=== PATIENT | female | born 1985 | race Caucasian/White ===

== ENCOUNTER 2022-11-15 09:02 | Outpatient (OUT) | payer OTHER, SELFPAY ==
--- NOTE | 2022-11-15 09:18 | VEIN_ITS ---
Patient: ERIC LAM Exam Date: 11/15/2022 : 1985 Gender:F Ordering : DR ALEKSANDR HOWARD M.D. Admission #: [id number] Family : Order #: [id number] CLICK HERE TO VIEW EXAM RADIOLOGY REPORT PROCEDURE: VC EXT VENOUS REFLUX SURINDER LMTD COMPARISON: None. INDICATIONS: I83.813 Painful varicose veins of bilat lower extremities TECHNIQUE: Duplex imaging of the lower extremity to assess the deep and superficial venous system for the presence of deep or superficial venous incompetence and to document the location and severity of disease. The study includes evaluation of the great saphenous vein (GSV), anterior accessory saphenous vein (AASV) and small saphenous vein (SSV). Patient scanned in reverse Trendelenburg and standing. FINDINGS: RIGHT LOWER EXTREMITY: Saphenofemoral Junction Reflux: Yes 9.0mm 1.1 sec GSV: Diam (mm) Reflux/ Time (sec) Proximal Thigh 5.6 No Mid Thigh 2.2 No Distal Thigh 2.0 No Prox Calf 1.9 No Mid Calf 2.3 No Saphenopopliteal Junction Reflux: 11.3mm Yes SSV: Proximal Calf 1.4 No Mid Calf 1.4 No AASV: Proximal Thigh 6.2 No Mid Thigh 2.9 No Distal Thigh Thrombi: No acute or chronic thrombus Compressibility: Normal Flow: Normal Preforator: No pharmacology associate visualized Tech Note: Incompetent SFJ/SPJ. Patent varicose vein on the distal medial thigh measures 1.9mm with 0s ofreflux. LEFT LOWER EXTREMITY: Saphenofemoral Junction Reflux: Yes 9.3 mm 1.5 sec GSV: Diam (mm) Reflux/Time (sec) Proximal Thigh 6.3 Yes 0.7 Mid Thigh 4.8 Yes 0.6 Distal Thigh 3.7 Yes 0.6 Prox Calf 2.6 No Mid Calf 1.4 No Saphenopopliteal Junction Relux: 8.0 mm Yes 0.9 SSV: Proximal Calf 1.4 No Mid Calf 2.4 No AASV: Not present Proximal Thigh Mid Thigh Distal Thigh Thrombi: No acute or chronic thrombus Compressibility: Normal Flow: Normal Vault Person: No pharmacology associate visualized Tech Note: Incompetent SFJ/SPJ. Patent varicose vein on the patients left groin measures 7.7 mm with 2.5s of reflux. Hypoechoic avascular area visualized in groin area measures 1.1 x 0.62 x 0.84 CM. CONCLUSION: 1. Mildly dilated mildly incompetent proximal left great saphenous vein and large varicosity arising from the great saphenous vein which corresponds to patient's area of pain. 2. Nonspecific 1.1 cm hypoechoic smoothly circumscribed and a vascular nodule within the subcutaneous fat of the left growing which also corresponds to patient's area of pain. Follow-up ultrasound evaluation of this area after vein treatment is recommended to document persistence versus resolution. 3. Unremarkable right lower extremity. Dictated by: Wilber Freedman M.D. on 11/15/2022 at 10:49 Approved by: Wilber Freedman M.D. on 11/15/2022 at 11:38
--- NOTE | 2022-11-15 09:19 | VEIN_ITS ---
Patient: ERIC RODRIGUEZ Exam Date: 11/15/2022 : 1985 Gender:F Ordering : DR ALEKSANDR HOWARD M.D. Admission #: [id number] Family : Order #: [id number] CLICK HERE TO VIEW EXAM RADIOLOGY REPORT PROCEDURE: VC FACILITY EST COMPREHENSIVE VEIN CENTER - OFFICE VISIT INITIAL COMPARISON: None. PROGRESS NOTES: [age] year old female who presents with a 5 year history of left leg pain and dilated bulging vein. The patient's left leg symptoms are worse than the right. There has been a progression of symptoms over time. This increases with prolonged sitting. The patient describes an improvement with rest, elevation, exercise, and medication. The patient denies any signs and symptoms to suggest arterial ischemia. The patient describes a family history of no pertinent relevance. The patient has drinking and smoking history of : None. Patient has a past medical history significant for : None. The patient denies a history of deep venous thrombus or pulmonary embolus. See separate history and physical for medication list. No prior treatment for varicose or spider veins. Current use of compression stockings. After review of nurse notes, history and physical exam I discussed at length the pathophysiology of venous hypertension and possible treatments, therapies and strategies available. We discussed at length the importance of elevating the lower extremities above the level of the heart, increased physical activity and compression stocking use. Ultrasound venous reflux study performed today was discussed at length with the patient. The report demonstrates mildly dilated and mildly incompetent proximal left great saphenous vein with large branching varicosity corresponding to patient's area of pain. PHYSICAL EXAM: The right leg demonstrates no varicosities, scattered spider veins, no ulceration, no edema, no skin discoloration. The left leg demonstrates large left growing varicosity corresponding to patient's area of constant pain, scattered spider veins, no ulceration, no edema, no skin discoloration. Both thighs, legs and feet were symmetrically warm to the touch. Good posterior tibial and dorsalis pedis pulses were present bilaterally. VEIN/VC Facility EST Comprehensive IMPRESSION: 1. Proximal left thigh venous insufficiency 2. Proximal left lower extremity varicose veins 3. No significant lower extremity subcutaneous edema 4. No flow significant arterial disease 5. CEAP: C2, EP, , [place] PLAN: 1. Continued use of compression stockings 2. Elevated legs and increased physical activity symptomatic relief 3. Endovenous laser ablation of proximal left great saphenous vein. 4. Microfoam chemical ablation of left growing dilated, painful varicosity. 5. Sclerotherapy. Nurse notes, history and physical were reviewed and confirmed, see attached forms. The nurse was present throughout the physical exam and consultation Dictated by: Wilber Freedman M.D. on 11/15/2022 at 11:42 Approved by: Wilber Freedman M.D. on 11/15/2022 at 11:53
== END 2022-11-15 09:03 | disposition home or self-care (01) ==
PROVIDERS: PCP Radiology Diagnostic Radiology; Visit Provider Radiology Diagnostic Radiology
DX: I83.813 Varicose veins of bilateral lower extremities with pain (principal)
CPT/HCPCS: 93970; G0463

== ENCOUNTER 2022-12-11 12:40 | Outpatient (OUT) | payer OTHER, SELFPAY ==
[2022-12-11] MEDS: LIDOCAINE HCL 1% 100 MG/10 ML MDV INJ (12:41)
[2022-12-11] MEDS: 0.9 % SODIUM CHLORIDE 500 ML, LIDOCAINE HCL 20 ML, SODIUM BICARBONATE 10 MEQ INJ (12:42)
--- NOTE | 2022-12-11 12:43 | VEIN_ITS ---
[address] [address] Patient Name: ERIC RODRIGUEZ MRN: [id number] date: 1985 Sex: F Assigned Patient Location: Current Patient Location: Accession/Order Number: [id number] Exam Date: 12/11/2022 12:45 Report Date: 12/11/2022 14:19 At the request of: ALEKSANDR HOWARD Procedure: VC Endovenous Ablation 1VeinLT EXAMINATION: VC Endovenous Ablation 1VeinLT HISTORY: Pain due to varicose veins of bilateral legs I83.813 COMPARISON: No relevant comparison available. TECHNIQUE: The risks and benefits of the procedure had been previously discussed, and were rediscussed at length. Informed written consent was obtained. Luis Weiss and Herve Adams assisted. Time out procedure was performed. The left lower extremity was prepared and draped in the usual sterile fashion to allow knee flexion in the sterile field. Duplex ultrasound probe was draped in a sterile cover, sterile transmission gel was used. Venous mapping was performed with the areas of dilation and large tributaries marked. The total length was 37 cm from the entry upper calf to 3 cm below the saphenofemoral junction. The diameter of the greater saphenous vein ranged from 4-7 mm. A 30 gauge needle and 1% buffered lidocaine was used to anesthetize the entry site. A 4 mm incision was made with a scalpel and the saphenous vein was entered percutaneously under direct ultrasound guidance with a micropuncture set, a single stick was successful in gaining access. A micro-guide wire was inserted and the needle removed. A micro-set including a dilator was inserted over the microwire and the needle and dilator were removed. A 0.018 guide wire was inserted through the micro-set and threaded through the saphenous vein to the saphenofemoral junction. The dilator was removed and an introducer sheath was inserted over the wire until the end of the sheath entered the saphenofemoral junction. The dilator and wire were removed and the 600 micron fiber was introduced and placed and positioned so that it extended beyond the sheath and was 3 cm peripheral to the saphenofemoral femoral junction. Final position of the fiber was determined by ultrasound guidance and duplex imaging. Tumescent anesthetic was delivered by ultrasound guidance. 250 cc of fluid was delivered along the entire course of the saphenous vein. The solution consisted of 1000 cc of normal saline with 40 mL of 1% lidocaine and 20 mL of sodium bicarbonate. A final positioning check was made. The energy source was turned on by means of the foot pedal and the fiber and sheath were withdrawn. The total number of Joules delivered was 1808. The laser was active for 226 seconds under continuous pulse, average laser use of 8 J. Laser start time 1:42 PM 12/11/2022 . Laser stop time 1:48 PM 12/11/2022 . A duplex ultrasound revealed compressibility and flow at the saphenofemoral junction immediately after the procedure. Hemostasis at the access site was achieved. The skin incision of the saphenous vein was closed with a 4 x 4. A compression stocking was applied. Postop instructions were given. A follow up appointment was recommended and scheduled. The patient tolerated the procedure well and was discharged in good condition . VEIN/VC Endovenous Ablation 1VeinLT IMPRESSION: Technically successful endovenous laser ablation of the left great saphenous vein Electronically authenticated by: ALEKSANDR HOWARD Date: 12/11/2022 14:19
== END 2022-12-11 12:41 | disposition home or self-care (01) ==
LOC: VC 12:40
PROVIDERS: PCP Radiology Diagnostic Radiology; Visit Provider Radiology Diagnostic Radiology
DX: I83.813 Varicose veins of bilateral lower extremities with pain (principal)
CPT/HCPCS: 36478

== ENCOUNTER 2022-12-14 09:38 | Outpatient (OUT) | payer OTHER, SELFPAY ==
--- NOTE | 2022-12-14 09:36 | VEIN_ITS ---
Patient Name: ERIC RODRIGUEZ MR#: [id number] : 1985 Exam Date: 12/14/2022 Ordering Doctor: DR ALEKSANDR HOWARD M.D. RADIOLOGY REPORT PROCEDURE: FACILITY EST LMTD VEIN CENTER - OFFICE VISIT FOLLOW UP COMPARISON: None. PROGRESS NOTES: The patient reports improvement in leg symptoms. There has been interval reduction in varicosities. The patient has followed our recommendations to walk 20-30 minutes once or twice per day since the procedure. Physical exam demonstrates decrease in varicosities of the leg. Persistent varicosities are identified along the left leg and mild postprocedural bruising. No evidence of infection. Review of the ultrasound performed the same day demonstrates occlusive thrombus extending throughout the treated vein(s), see separate report, consistent with a successful ablation. No thrombus extending into or beyond the saphenofemoral junction. The patient expressed a desire to proceed with treatment of remaining branch saphenous varicosities and spider veins. The patient was informed that treatment was a process and would require several procedures/sessions. VEIN/ Facility EST TD IMPRESSION: 1. Successful ablation of the left great saphenous vein(s). 2. Persistent incompetent varicose veins and spider veins and lower extremity symptoms. PLAN: Endovenous laser ablation of left leg incompetent branch saphenous varicosities. Nurse notes, history and physical were reviewed and confirmed, see attached forms. The nurse was present throughout the physical exam and consultation Dictated by: Wilber Freedman M.D. on 12/14/2022 at 10:41 Approved by: Wilber Freedman M.D. on 12/14/2022 at 10:52
--- NOTE | 2022-12-14 09:39 | VEIN_ITS ---
Patient Name: ERIC RODRIGUEZ MR#: [id number] : 1985 Exam Date: 12/14/2022 Ordering Doctor: DR ALEKSANDR HOWARD M.D. RADIOLOGY REPORT PROCEDURE: VC EXT VENOUS LT LIMITED COMPARISON: None. INDICATIONS: Phlebitis and thrombophlebitis of lt lower ext. I80.02 TECHNIQUE: Lower extremity bran scale and Duplex Doppler evaluation of the deep venous system from the inguinal ligament through the calf veins. FINDINGS: REGION: Left lower extremity. THROMBI: Negative for DVT. Echogenic thrombus visualized 1.3 cm from the saphenofemoral junction and extends throughout the GSV to point of insertion. COMPRESSIBILITY: Non-compressible segments corresponding to thrombus FLOW: Areas of no flow corresponding to thrombus OTHER: CONCLUSION: 1. Successful post ablation occlusion of left great saphenous vein. Dictated by: Wilber Freedman M.D. on 12/14/2022 at 09:57 Approved by: Wilber Freedman M.D. on 12/14/2022 at 10:40
== END 2022-12-14 09:39 | disposition home or self-care (01) ==
LOC: VC 09:38
PROVIDERS: PCP Radiology Diagnostic Radiology; Visit Provider Radiology Diagnostic Radiology
DX: I80.02 Phlebitis and thrombophlebitis of superficial vessels of left lower extremity (principal)
CPT/HCPCS: 93971; G0463

== ENCOUNTER 2022-12-19 10:13 | Outpatient (OUT) | payer OTHER, SELFPAY ==
--- NOTE | 2022-12-19 10:15 | VEIN_ITS ---
[address] [address] Patient Name: ERIC RODRIGUEZ MRN: [id number] date: 1985 Sex: F Assigned Patient Location: Current Patient Location: Accession/Order Number: [id number] Exam Date: 12/19/2022 10:20 Report Date: 12/19/2022 12:22 At the request of: ALEKSANDR HOWARD Procedure: VC INJ Foam Sclerosant WUS FERMENTER WINE PROCEDURE: VC INJ Foam Sclerosant WUS FERMENTER WINE HISTORY: Pain due to varicose veins of bilateral legs I83.813 Pre-operative Diagnosis: CEAP class C2 venous insufficiency with pain, tenderness, edema and incompetent branch saphenous vein(s), chronic venous insufficiency left leg secondary to venous incompetence Post-operative Diagnosis: CEAP class C2 venous insufficiency with pain, tenderness, edema and incompetent branch saphenous vein(s), chronic venous insufficiency left leg secondary to venous incompetence Procedure Performed: 1. Ultrasound-guided microfoam chemical ablation with Varithenaregistered 2. Intraoperative ultrasound guidance Physician: Wilber Freedman M.D. Anesthesia: None Indications for Procedure: 37 year old female. Symptoms including lower extremity pain, swelling, dilated veins for many years despite conservative medical therapy including medical compression stockings, exercise and analgesics. Prior procedures include [endovenous laser ablation. Multiple incompetent varicosities of the left leg. Duplex scan showed reflux and enlarged diameters up to 3 mm. The patient underwent informed consent including management options where the complications of infection, bleeding, pain, and skin injury were discussed. Particular attention was spent discussing thrombus extension and deep vein thrombosis as well as the possibility of pulmonary embolus and treatment with oral or injectable blood thinners. Procedure: The patient walked to the procedure room. All applicable staff donned appropriate apparel. A procedure timeout was performed to confirm correct patient, correct extremity, correct procedure, and correct room set-up including presence of all applicable supplies, devices, and drugs. A duplex ultrasound, performed by myself confirmed the location and incompetence of branch saphenous varicosities and their course was marked on the skin together with the dilated tributaries. The extent of treatment of the vein and the associated varicosities was determined through ultrasound mapping. The skin was prepped and then punctured with a butterfly needle and advanced under ultrasound guidance. The Varithenaregistered canister was activated and the canister was primed and purged as required in the instructions for use. Varithenaregistered was drawn into a sterile syringe. Varithenaregistered was slowly administered at 0.5-1.0 cc/second with close observation by ultrasound of its course in the vessels. Total volume utilized was: 4 cc into a 3 mm dilated and incompetent varicose vein within medial left groin. Following administration of Varithenaregistered the leg was elevated and the patient was asked to repeatedly dorsiflex the ankle to limit flow of Varithenaregistered into perforating veins. Once appropriate spasm had been confirmed in the treated veins, the vascular catheter was removed from the leg and light pressure was applied over the puncture site for hemostasis. The common femoral and deep superficial veins were then evaluated for flow and compressibility prior to dressing placement. The lower extremity was kept elevated at 45 degrees above the horizontal and cording material was applied over the saphenous segments and tributaries to allow for eccentric compression over the target vessels including the targeted saphenous vein(s). A multilayer dressing was applied consisting of foam pads, coban and thigh-high 20-30 mm Hg compression elastic support hose were placed on the patient. The leg was lowered only after compression had been applied and the patient was immediately ambulatory. The patient ambulated 10 minutes under supervision and was without apparent concerns at time of release. Post-care instructions include advising patient to keep post-treatment bandages in place and dry for 48 hours, avoid extended periods of inactivity, avoid heavy exercise for one week, wear compression stockings on the treated leg continuously for two weeks, to walk daily for 10 minutes over the next month. The patient was instructed to take an anti-inflammatory medicine as needed and to follow up for color duplex scan of the Saphenous veins, the treated branch saphenous varicosities, the adjacent deep veins, and additional treatment within 7 days. PERSONNEL: Herve Adams RN and Luis Weiss RDMS Electronically authenticated by: WILBER FREEDMAN Date: 12/19/2022 12:22
== END 2022-12-19 10:14 | disposition home or self-care (01) ==
LOC: VC 10:14
PROVIDERS: PCP Radiology Diagnostic Radiology; Visit Provider Radiology Diagnostic Radiology
DX: I83.813 Varicose veins of bilateral lower extremities with pain (principal)
CPT/HCPCS: 36466

== ENCOUNTER 2022-12-22 09:22 | Outpatient (OUT) | payer OTHER, SELFPAY ==
--- NOTE | 2022-12-22 09:23 | VEIN_ITS ---
Patient Name: ERIC RODRIGUEZ MR#: [id number] : 1985 Exam Date: 12/22/2022 Ordering Doctor: DR ED JORDAN M.D. RADIOLOGY REPORT PROCEDURE: VC EXT VENOUS LT LIMITED COMPARISON: VC EXT VENOUS LT LIMITED, 12/14/2022. INDICATIONS: I80.02 Phlebitis of superficial veins of lt lower extremity TECHNIQUE: Lower extremity bran scale and Duplex Doppler evaluation of the deep venous system from the inguinal ligament through the calf veins. FINDINGS: REGION: Left lower extremity. THROMBI: Negative for DVT. Varithena induced thrombus visualized at prox and mid medial groin. COMPRESSIBILITY: Non-compressible segments corresponding to thrombus FLOW: Absent flow corresponding to thrombus CONCLUSION: Post ablation occlusion of treated left leg varicose veins. Dictated by: Ed Jordan MD on 12/22/2022 at 09:38 Approved by: Ed Jordan MD on 12/22/2022 at 09:39
--- NOTE | 2022-12-22 09:23 | VEIN_ITS ---
Patient Name: ERIC RODRIGUEZ MR#: [id number] : 1985 Exam Date: 12/22/2022 Ordering Doctor: DR ED JORDAN M.D. RADIOLOGY REPORT PROCEDURE: [facility] LMTD VEIN CENTER - OFFICE VISIT FOLLOW UP COMPARISON: [facility], 12/14/2022. PROGRESS NOTES: The patient reports some mild tenderness of the left leg following micro foam chemical ablation. The patient has worn her compression stockings. The patient did not require oral analgesics. The patient has followed our recommendations to walk 20-30 minutes once or twice per day since the procedure. Physical exam demonstrates scattered thrombosed varicose veins. Some scattered hemosiderin staining. No patent varicose veins are observed. No erythema or warmth to suggest cellulitis or thrombophlebitis. No ulceration. Review of the ultrasound performed the same day demonstrates occlusive thrombus extending throughout the treated left leg varicose veins. No residual patent varicose veins are observed. The patient expressed a desire to proceed with treatment of reticular and spider veins with injection sclerotherapy[facility]: 1. Successful ablation of treated incompetent left leg varicose veins 2. Persistent bilateral reticular and spider. PLAN: Injection sclerotherapy Nurse notes, history and physical were reviewed and confirmed, see attached forms. The nurse was present throughout the physical exam and consultation Dictated by: Ed Jordan MD on 12/22/2022 at 10:13 Approved by: Ed Jordan MD on 12/22/2022 at 10:14
== END 2022-12-22 09:23 | disposition home or self-care (01) ==
LOC: VC 09:22
PROVIDERS: PCP Radiology Diagnostic Radiology; Visit Provider Radiology Diagnostic Radiology
DX: I80.02 Phlebitis and thrombophlebitis of superficial vessels of left lower extremity (principal)
CPT/HCPCS: 93971; G0463